=== PATIENT | female | born 1945 | race Caucasian/White ===

== ENCOUNTER → 2019-08-26 | Outpatient (CLI) | payer MEDICARE ==
[~2019-08-26] MED LIST: ACET325T21 PO; AMIL5TAB2 PO; AMLO2.5T5 PO; ATOR20TA37 PO; CALC-141 PO; CALC3.7S5 NAS; CALC3.7S5 PO; CHOL200052 PO; CIPR500T87 PO; CYAN10002 SC; CYCL-259 PO; DOCU-131 PO; DOXY100C15 PO; EZET10TA70 PO; INDA1.25 PO; IRBE150T25 PO; LACT1CAP35 PO; LACT1CAP5 PO; LEVO125T PO; LIOT5TAB11 PO; MAGN100T PO; METF500T17 PO; NITR0.4T41 SL; OMEG-14 PO; OMEG1CAP34 PO; ONDA4TAB10 PO; OXYC1TAB7 PO; OXYC30TA PO; PYRI50TA7 PO; SIMV20TA3 PO; TEMA15CA6 PO; TRAM-47 PO; UBID100C24 PO
== END | disposition home or self-care (01) ==
LOC: EDSTATUS 08-07 18:00 → ROC 09:06
PROVIDERS: ATTEND Radiology Radiation Oncology
DX: C50.412 Malignant neoplasm of upper-outer quadrant of left female breast (principal)
CPT/HCPCS: G0463

== ENCOUNTER → 2020-02-07 | Outpatient (CLI) | payer MEDICARE ==
[~2020-02-07] MED LIST changes: -IRBE150T25 PO; +IRBE150T9 PO; +SIMV20TA19 PO; -SIMV20TA3 PO
== END | disposition home or self-care (01) ==
LOC: CFH 09:45
PROVIDERS: ATTEND Radiology Radiation Oncology
DX: C50.412 Malignant neoplasm of upper-outer quadrant of left female breast (principal)
CPT/HCPCS: 77066; G0279

== ENCOUNTER → 2020-10-23 | Outpatient (CLI) | payer MEDICARE ==
[~2020-10-23] MED LIST changes: +ACET-2274 PO; -ACET325T21 PO; -OXYC30TA PO; +OXYC30TA3 PO
== END | disposition home or self-care (01) ==
LOC: CFH 12:36
PROVIDERS: ATTEND Internal Medicine Cardiovascular Disease
DX: I36.1 Nonrheumatic tricuspid (valve) insufficiency (principal); I27.20 Pulmonary hypertension, unspecified; I44.7 Left bundle-branch block, unspecified; I51.7 Cardiomegaly
CPT/HCPCS: 93306

== ENCOUNTER → 2020-11-09 | Outpatient (CLI) | payer MEDICARE ==
[~2020-11-09] MED LIST changes: -CYCL-259 PO; +CYCL10TA2 PO
== END | disposition home or self-care (01) ==
LOC: ROC 07:40
PROVIDERS: ATTEND Radiology Radiation Oncology
DX: Z08 Encounter for follow-up examination after completed treatment for malignant neoplasm (principal); Z85.3 Personal history of malignant neoplasm of breast
CPT/HCPCS: G0463

== ENCOUNTER → 2021-02-09 | Outpatient (CLI) | payer MEDICARE ==
[~2021-02-09] MED LIST changes: +PYRI50TA PO; -PYRI50TA7 PO
== END | disposition home or self-care (01) ==
LOC: CFH 09:55
PROVIDERS: ATTEND Radiology Radiation Oncology
DX: Z12.31 Encounter for screening mammogram for malignant neoplasm of breast (principal); C50.412 Malignant neoplasm of upper-outer quadrant of left female breast
CPT/HCPCS: 77063; 77067

== ENCOUNTER → 2021-03-19 | Outpatient (CLI) | payer MEDICARE ==
[~2021-03-19] MED LIST changes: +DOXY-246 PO; -DOXY100C15 PO
== END | disposition home or self-care (01) ==
LOC: ROC 07:44
PROVIDERS: ATTEND Radiology Radiation Oncology
DX: Z08 Encounter for follow-up examination after completed treatment for malignant neoplasm (principal); Z85.3 Personal history of malignant neoplasm of breast
CPT/HCPCS: G0463